=== PATIENT | female | born 1990 | race African-American/Black ===

== ENCOUNTER 2019-05-12 17:02 | Emergency (ER) | payer OTHER ==
[~2019-05-12] VITALS: Ht 172.7 cm; Wt 113.4 kg
[2019-05-12] MEDS ORDERED: GABAPENTIN300 MG PO (17:36)
[2019-05-12] MEDS ORDERED: SEROQUEL25 MG PO (17:37)
[2019-05-12] MEDS ORDERED: HYDROXYZINE HCL25 MG PO (17:37)
[2019-05-12] MEDS ORDERED: ADDERALL 20 MG20 MG (17:37)
[2019-05-12 17:56] LABS: BASOPHILS % 0.2 % (0.0-1.0); EOSINOPHILS % 0.2 % (0.0-6.0); HEMATOCRIT 37.3 % (34.2-44.1); HEMOGLOBIN 11.6 g/dL (12.0-16.0); LYMPHOCYTES # (AUTO) 1.5 (1.0-3.2); MEAN CORPUSCULAR HEMOGLOBIN 27.2 pg (28-32); MEAN CORPUSCULAR HGB CONC 31.1 g/dL (31-35); MEAN CORPUSCULAR VOLUME 87.4 fL (81-99); MONOCYTES # (AUTO) 0.4 (0.2-0.8); MONOCYTES % 8.1 % (4.4-11.3); NEUTROPHILS # (AUTO) 3.4 (2.1-6.9); NEUTROPHILS % 62.4 % (38.7-80.0); PLATELET COUNT 264 x10e3/uL (140-360); RED BLOOD COUNT 4.27 x10e6/uL (3.6-5.1); RED CELL DISTRIBUTION WIDTH 13.7 % (11.7-14.4)
[2019-05-12 17:59] LABS: PHENCYCLIDINE SCREEN,URINE NEGATIVE (NEGATIVE)
[2019-05-12 18:00] LABS: AMPHETAMINES SCREEN,URINE POSITIVE (NEGATIVE); BENZODIAZEPINES SCREEN,URINE NEGATIVE (NEGATIVE)
[2019-05-12 18:11] LABS: ALANINE AMINOTRANSFERASE 19 IU/L (0-55); ALBUMIN 3.9 g/dL (3.5-5.0); ALBUMIN/GLOBULIN RATIO 1.1 (0.8-2.0); ALKALINE PHOSPHATASE 74 IU/L (40-150); ANION GAP 11.2 mmol/L (8-16); BLOOD UREA NITROGEN < 5 mg/dL (7-26); BUN/CREATININE RATIO 6 (6-25); CALCIUM 9.2 mg/dL (8.4-10.2); CARBON DIOXIDE 28 mmol/L (22-29); CHLORIDE 105 mmol/L (98-107); CREATINE KINASE 202 IU/L (29-168); CREATININE, SERUM 0.77 mg/dL (0.57-1.11); EST GLOMERULAR FILTRATION RATE > 60 ML/MIN (60-); GLUCOSE 100 mg/dL (74-118); POTASSIUM 3.2 mmol/L (3.5-5.1); SODIUM 141 mmol/L (136-145)
[2019-05-12] MEDS ORDERED: KETOROLAC TROMETHAMINE 30 MG/ML VIAL IV STA (18:38)
--- NOTE | 2019-05-12 18:50 | Diagnostic Imaging Report ---
CT BRAIN WO HISTORY: 28-year-old female status post syncopal episode and fall COMPARISON: None. TECHNIQUE: Noncontrast axial scans were obtained from skull base to the vertex. Coronal and sagittal reconstructions obtained from the axial data. One or more of the following dose reduction techniques were used: Automated exposure control, adjustment of the mA and/or kV according to patient size, and/or utilization of iterative reconstruction technique. DISCUSSION: Scalp/Skull: Unremarkable. Brain sulci: Appropriate for patient's age. Ventricles: Normal in size and configuration. No hydrocephalus. Extra-axial spaces: No masses or fluid collections. Parenchyma: No abnormal densities. No mass, hemorrhage, or large vascular territory acute infarct. Dural sinuses: No abnormal densities. Sellar/Suprasellar region: Intact. Skull base: Intact. Incidental findings: Minimal mucosal thickening in right sphenoid sinus. IMPRESSION: No intracranial abnormalities. This preliminary report was issued by Dr. Yuan Cox M.D. neuroradiology fellow at 1849 hours on 05/12/2019. I have reviewed the images and agree with findings in the preliminary report. Signed by: Dr. Elizabeth Carrillo M.D. on 05/12/2019 8:33 PM
[2019-05-12] MEDS ORDERED: KETOROLAC TROMETHAMINE 30 MG/ML VIAL IV ONE (19:00)
--- NOTE | 2019-05-12 19:23 | Diagnostic Imaging Report ---
Ankle complete CPT CODE: 90879 HISTORY: Fall TECHNIQUE: Three views right ankle obtained COMPARISON: None. FINDINGS: The distal tibia and fibula appear intact. Ankle mortise remains symmetric. No significant soft tissue swelling at the malleoli. The calcaneus appears intact with a small plantar spur. The visualized portions of the midfoot and forefoot are intact. IMPRESSION: No evidence of acute fracture or dislocation involving the ankle. Signed by: Dr. Dali Silverio MD on 05/12/2019 7:20 PM
--- NOTE | 2019-05-12 19:23 | Diagnostic Imaging Report ---
Ankle complete CPT CODE: 36659 HISTORY: Fall TECHNIQUE: Three views left ankle obtained COMPARISON: None. FINDINGS: The distal tibia and fibula appear intact. Ankle mortise remains symmetric. No significant soft tissue swelling at the malleoli. The calcaneus appears intact. The visualized portions of the midfoot and forefoot are intact. IMPRESSION: No evidence of acute fracture or dislocation involving the ankle. Signed by: Dr. Dali Silverio MD on 05/12/2019 7:20 PM
[2019-05-12 19:47] VITALS: BP 132/68
[2019-05-12 20:30] LABS: LYMPHOCYTES % (MANUAL) 21 % (19-48); MONOCYTES % (MANUAL) 7 % (3.4-9.0); NEUTROPHILS % (MANUAL) 65 % (40-74)
[2019-05-12 20:35] LABS: PLATELET ESTIMATE ADEQUATE; PLATELET MORPHOLOGY COMMENT NORMAL; RBC MORPHOLOGY COMMENT NORMAL
== END 2019-05-12 19:50 | disposition home or self-care (01) ==
LOC: ER 17:02
DX: S06.0X0A Concussion without loss of consciousness, initial encounter (principal); S00.532A Contusion of oral cavity, initial encounter; M25.572 Pain in left ankle and joints of left foot; M25.571 Pain in right ankle and joints of right foot; W01.0XXA Fall on same level from slipping, tripping and stumbling without subsequent striking against object, initial encounter; Y93.01 Activity, walking, marching and hiking; Y92.008 Other place in unspecified non-institutional (private) residence as the place of occurrence of the external cause; F31.9 Bipolar disorder, unspecified
CPT/HCPCS: 36415; 70450; 73610 ×2; 80053; 80307; 82550; 82553; 84484; 85025; 93005; 99284; J1885